=== PATIENT | male | born 1995 | race Caucasian/White ===

== ENCOUNTER 2023-11-19 05:28 | Emergency (ER) | payer SELFPAY ==
[~2023-11-19] VITALS: Ht 177.8 cm; Wt 86.2 kg
[2023-11-19 05:34] VITALS: BP_SYST 131; PULSE 78; RESP 18; TEMP 98.8; O2SAT 98
[2023-11-19] MEDS ORDERED: AUG875 PO (05:45)
[2023-11-19 05:58] VITALS: BP_SYST 131; PULSE 78; RESP 18; TEMP 98.8; O2SAT 98
== END 2023-11-19 05:58 | disposition home or self-care (01) ==
LOC: SED 05:28
DX: J02.9 Acute pharyngitis, unspecified (principal); Z79.2 Long term (current) use of antibiotics
CPT/HCPCS: 99283

== ENCOUNTER 2023-12-22 17:28 | Emergency (ER) | payer MEDICAID ==
[~2023-12-22] VITALS: Ht 177.8 cm; Wt 86.2 kg
[~2023-12-22 17:28] MED LIST: AUG875 PO
[2023-12-22 17:34] VITALS: BP_SYST 150; PULSE 92; RESP 18; TEMP 97.8; O2SAT 98
[2023-12-22] MEDS: DEXAMETHASONE SOD PHOSPHATE 10 MG/ML VIAL IVP ONE (19:49)
[2023-12-22] MEDS: KETOROLAC TROMETHAMINE 15 MG VIAL IVP ONE (19:55)
[2023-12-22] MEDS: CLINDAMYCIN 600 mg/50mL D5W 50 ML IV ONE (19:56)
[2023-12-22] MEDS ORDERED: CLIN-142 PO (21:41)
[2023-12-22 21:47] VITALS: BP_SYST 132; PULSE 82; RESP 17; TEMP 97.8; O2SAT 100
== END 2023-12-22 21:47 | disposition home or self-care (01) ==
LOC: SED 17:28
DX: J36 Peritonsillar abscess (principal); Z79.52 Long term (current) use of systemic steroids; Z79.2 Long term (current) use of antibiotics
CPT/HCPCS: 99284; 96365; 96375; 86403; 36415; 87081; J3490; J1100; J1885

== ENCOUNTER 2023-12-24 01:14 | Emergency (ER) | payer MEDICAID ==
[~2023-12-24] VITALS: Ht 177.8 cm; Wt 86.2 kg
[~2023-12-24 01:14] MED LIST changes: +CLIN-142 PO
[2023-12-24 01:53] VITALS: BP_SYST 129; PULSE 80; RESP 18; TEMP 98.5; O2SAT 97
[2023-12-24] MEDS ORDERED: AUG875 PO (03:59)
[2023-12-24] MEDS: DEXAMETHASONE SOD PHOSPHATE 10 MG/ML VIAL IM ONE (04:05)
[2023-12-24] MEDS: cefTRIAXone 1 GM in LIDOCAINE 1%, 20 ML MDV 2.1 ML IM ONE (04:06)
[2023-12-24 04:18] VITALS: BP_SYST 129; PULSE 80; RESP 18; TEMP 98.5; O2SAT 97
== END 2023-12-24 04:16 | disposition home or self-care (01) ==
LOC: SED 01:14
DX: J36 Peritonsillar abscess (principal)
CPT/HCPCS: 99284; 96372; J0696; J1100; J2003